=== PATIENT | female | born 2000 | race Caucasian/White ===

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

== ENCOUNTER 2020-07-03 15:06 | Emergency (ER) | payer MEDICAID ==
[~2020-07-03] VITALS: Ht 154.9 cm; Wt 72.2 kg
--- NOTE | 2020-07-03 15:33 | NUR ---
PT C/O LOWER ABD PAIN AND BLOOD IN STOOL (DIARRHEA). PT DESCRIBES IT BRIGHT RED WITH SOME DARK CLOTS. PT DENIES N/V. NO PAIN AT THIS TIME.
[2020-07-03 15:54] LABS: BASOPHILS % (AUTO) 1 % (0-1); EOSINOPHILS % (AUTO) 2 % (1-7); LYMPHOCYTES % (AUTO) 29 % (22-44); MEAN CORPUSCULAR HEMOGLOBIN 28.8 pg (27.0-34.8); MEAN CORPUSCULAR HGB CONC 33.9 g/dL (32.4-35.8); MEAN PLATELET VOLUME 8.8 fL (7.4-10.4); MONOCYTES % (AUTO) 8 % (2-9); NEUTROPHILS % (AUTO) 61 % (42-75); PLATELET COUNT 336 x10^3/uL (130-400); RED BLOOD COUNT 4.61 x10^6/uL (3.82-5.3); RED CELL DISTRIBUTION WIDTH 13.1 % (9.6-15.2)
[2020-07-03 16:01] LABS: MD NO
[2020-07-03 16:02] LABS: ALANINE AMINOTRANSFERASE 20 U/L (12-78); ALBUMIN 3.8 g/dL (3.4-5.0); ANION GAP 7 mmol/L (5-15); CALCIUM 9.1 mg/dL (8.5-10.1); CHLORIDE 107 mmol/L (98-107); CREATININE 0.71 mg/dL (0.55-1.02)
[2020-07-03 16:07] LABS: ALKALINE PHOSPHATASE 40 U/L (45-117); BILIRUBIN,TOTAL 0.3 mg/dL (0.2-1.0); TOTAL PROTEIN 7.4 g/dL (6.4-8.2)
[2020-07-03 16:22] LABS: MICROSCOPIC INDICATED
[2020-07-03 17:15] VITALS: BP 112/77
--- NOTE | 2020-07-03 17:16 | NUR ---
PT REC'VD DIASCHARGE INSTRUCTIONS AND EDUCATION. PT HAD NO FURTHER QUESTIONS. PT AMBULATED TO DC AREA WITH SPOUSE. PT HAD A STEADY GAIT.
== END 2020-07-03 17:23 | disposition home or self-care (01) ==
LOC: ED 17:16
DX: R19.7 Diarrhea, unspecified (principal); K64.8 Other hemorrhoids; R10.2 Pelvic and perineal pain
CPT/HCPCS: 36415; 80053; 81001; 84703; 85025; 87086; 99283